=== PATIENT | male | born 1960 | race Caucasian/White ===

== ENCOUNTER 2018-07-15 16:50 | Emergency (ER) | payer OTHER ==
[~2018-07-15] VITALS: Ht 167.6 cm; Wt 93.0 kg
[2018-07-15 16:55] VITALS: BP 151/100
--- NOTE | 2018-07-15 17:00 | NUR ---
dr romo at bedside
--- NOTE | 2018-07-15 17:05 | NUR ---
58 Y M bib self. per patient he fell off the top of a ladder and hit his head on a rail coming down and landed on his r arm. pt states he was 6 ft high. laceration across pts r forehead. 1 cm long. pts right eye swollen, red, and pt cant open his right eye. c/o intense pain 10/10 in right arm. -rom, +radial pulse, -swelling. vss at this time. aa0x4. gcs 15. bed is down, locked, bed rail x 1, ermd notified. pmh-none
--- NOTE | 2018-07-15 17:08 | NUR ---
pt states his boss drove him to the er
--- NOTE | 2018-07-15 17:27 | NUR ---
Patient taken to CT scan/XRAY via gurney by howard.
--- NOTE | 2018-07-15 17:32 | NUR ---
pt taken to ct
--- NOTE | 2018-07-15 17:57 | NUR ---
pt returned from ct
--- NOTE | 2018-07-15 18:05 | NUR ---
Dr. Browne re-evaluating patient at bedside.
[2018-07-15] MEDS ORDERED: fentaNYL 0.05 MG/ML VIAL IVP ONE (18:25)
[2018-07-15] MEDS ORDERED: ETOMIDATE 20 MG/10 ML VIAL IVP ONE (18:25)
--- NOTE | 2018-07-15 18:33 | NUR ---
Dr. Browne, RT and RN at bedside for reduction of right shoulder dislocation with moderate sedation.
--- NOTE | 2018-07-15 18:35 | NUR ---
PT PLACED ON 2 L NC
--- NOTE | 2018-07-15 18:40 | NUR ---
Placed patient onto nasal cannula at 2 l/m along with CO2 detector. at bedside. Patient did not desat and continued spontaneously breathing. Patient given Propofol due to adverse reaction to Etomidate, in which patient was clenching and tightening extremities. Bagged patient with Ambu bag at 100% Fio2 once Propofol was given. Spo2 remained between 98-100%.
--- NOTE | 2018-07-15 18:42 | NUR ---
CONSCIOUS SEDATION STARTED, PHYSICIAN, RT, EMT, RN AT BEDSIDE. WILL CONTINUE TO MONITOR PT
--- NOTE | 2018-07-15 18:48 | NUR ---
PER DR ORDER, PROPOFOL 100 MG GIVEN IVP
--- NOTE | 2018-07-15 18:49 | NUR ---
pt placed on ampe bug 100 percent o2
--- NOTE | 2018-07-15 18:49 | NUR ---
Ben hernandez in [facility] - 07/15/18 at 2039 by [email or web address] PT PLACED ON 100% NONREBREATHER
--- NOTE | 2018-07-15 18:51 | NUR ---
PT PLACED IN SLING
[2018-07-15] MEDS ORDERED: PROPOFOL 200 MG/20 ML VIAL IV ONE ×2 (18:55→18:56)
--- NOTE | 2018-07-15 18:56 | NUR ---
KEHINDE EMT AT BEDSIDE GIVING EYE CARE
[2018-07-15] MEDS ORDERED: LIDOCAINE 1% 500 MG/50 ML VIAL INJ SCH (19:20)
[2018-07-15 19:24] LABS: BASOPHILS % (AUTO) 0.3 % (0.0-2.0); EOSINOPHILS % (AUTO) 0.3 % (0.0-4.0); HEMATOCRIT 43.2 % (36-52); HEMOGLOBIN 14.6 g/dL (12.0-18.0); LYMPHOCYTES # (AUTO) 1.5 K/uL (2.0-11.5); LYMPHOCYTES % (AUTO) 10.3 % (20.5-51.1); MEAN CORPUSCULAR HEMOGLOBIN 30 pg (27-31); MEAN CORPUSCULAR HGB CONC 34 g/dL (33-37); MEAN CORPUSCULAR VOLUME 89.6 fL (80-94); MONOCYTES # (AUTO) 1.1 K/uL (0.8-1.0); MONOCYTES % (AUTO) 7.7 % (1.7-9.3); NEUTROPHILS # (AUTO) 11.6 K/uL (1.8-7.7); NEUTROPHILS % (AUTO) 81.4 % (42.2-75.2); PLATELET COUNT (AUTO) 225 K/uL (140-450); RED BLOOD CELL COUNT(AUTO) 4.82 MIL/uL (4.20-6.10); RED CELL DISTRIBUTION WIDTH 14.2 % (11.6-13.7); WHITE BLOOD COUNT (AUTO) 14.2 K/uL (4.8-10.8)
--- NOTE | 2018-07-15 19:25 | NUR ---
PT COMING OUT OF SEDATED STATE. EYES OPENED. MOANED. ABD TO VERBALLIZED, ALERT TO NAME AND PLACE. EYES CLOSED AGAIN. VSS. CONTINUE TO MONITOR.
--- NOTE | 2018-07-15 19:30 | NUR ---
DR BLANTON AT BEDSIDE. PT CONVERSING WITH DR. POWELL. CONTINUE TO MONITOR.
--- NOTE | 2018-07-15 19:30 | NUR ---
PT ALERT TO NAME, PLACE, TIME, AND EVENT.
[2018-07-15] MEDS ORDERED: LIDOCAINE MPF 1% 5mL VIAL ONE (19:32)
[2018-07-15 19:35] LABS: ANION GAP 15.2 (8-16); CARBON DIOXIDE 24.4 mmol/L (21-32); CHLORIDE 102 mmol/L (98-107); CREATININE 0.6 mg/dL (0.7-1.3); GFR ARICAN-AMERICAN 177 mL/min (>90); GLUCOSE 120 mg/dL (74-106); POTASSIUM 3.6 mmol/L (3.5-5.1); SODIUM SERUM 138 mmol/L (136-145); UREA NITROGEN, BLOOD 20 mg/dL (7-18)
[2018-07-15 19:41] LABS: ALBUMIN 3.7 g/dL (3.4-5.0); ASPARTATE AMINOTRANSFERASE 35 U/L (15-37); SALICYLATE 5.4 mg/dL (2.8-20.0); TOTAL BILIRUBIN 0.5 mg/dL (0.0-1.0)
[2018-07-15 19:42] LABS: ACETAMINOPHEN < 0.5 ug/ml (10-30)
--- NOTE | 2018-07-15 20:07 | NUR ---
[facility] TO [facility]. GAVE REPORT. PT VSS. CONTINUE TO MONITOR.
--- NOTE | 2018-07-15 20:08 | NUR ---
pt unable to give urine at this time
--- NOTE | 2018-07-15 20:32 | NUR ---
[facility] AT BEDSIDE
--- NOTE | 2018-07-15 20:49 | NUR ---
transport team waiting for cd copy
--- NOTE | 2018-07-15 20:49 | NUR ---
report given to transport team, robert oyster opener
--- NOTE | 2018-07-15 20:57 | NUR ---
Patient to be transferred to [facility]. Is being transferred due to HIGHER LEVEL OF CARE. Receiving facility has accepting physician and available space. ER physician has signed transfer form. Patient or responsible green party has agreed to transfer and signed form. Patient belongings inventoried and will be sent with patient. Copy of nursing notes, lab reports, EKG, Physicians Orders and X-rays to be sent with patient. Report called to LEILA LENNON at receiving facility. [facility] ambulance service has been called for transfer. [facility] AT BEDSIDE.
[2018-07-15 20:59] VITALS: BP 175/92
== END 2018-07-15 20:57 | disposition short-term general hospital (02) ==
LOC: MED 16:50
DX: S43.014A Anterior dislocation of right humerus, initial encounter (principal); S02.92XA Unspecified fracture of facial bones, initial encounter for closed fracture; S01.81XA Laceration without foreign body of other part of head, initial encounter; W11.XXXA Fall on and from ladder, initial encounter; Y93.89 Activity, other specified; Y92.69 Other specified industrial and construction area as the place of occurrence of the external cause; Y99.0 Civilian activity done for income or pay
CPT/HCPCS: 12011; 23650; 36415; 70450; 70486; 71250; 72125; 73020; 73060; 74176; 80053; 85025; 93005; 96374; 99152; 99285; G0480; G0482; G0500; J2001; J2704; J3010; J3490; Q0092

== ENCOUNTER 2021-06-06 18:25 | Emergency (ER) | payer SELFPAY ==
[~2021-06-06] VITALS: Ht 167.6 cm; Wt 105.7 kg
[2021-06-06 18:32] VITALS: BP 161/79
--- NOTE | 2021-06-06 18:40 | NUR ---
PT AMBULATED TO ROOM 2 AT THIS TIME
--- NOTE | 2021-06-06 18:45 | NUR ---
61 Y/O MALE AMBULATED TO BED 2 WHILE HOLDING ON TO DAUGHTERS ARM FOR VISUAL GUIDANCE, C/O DISORIENTATION X 1 WEEK WITH VISION CHANGES. STATES HE FEELS IF HE IS AT 30 % VISION. REPORTS AN EPISODE WHILE DRIVING A MOTOR VEHICLE THAT HE COULD NOT REMEMBER WHERE HE WAS AND HOW HE GOT TO WHERE HE WAS AT THAT TIME. PMHX: DENIES ALLERGIES: DENIES HOME MEDS: DENIES
--- NOTE | 2021-06-06 19:15 | NUR ---
Pt report given to SAJI RICHARDSON. Transfer of care at this time.
[2021-06-06] MEDS ORDERED: KETOROLAC 60 MG/2 ML VIAL IM ONE (19:20)
--- NOTE | 2021-06-06 19:20 | NUR ---
ASSUMED PATIENT CARE, HERE FOR ALOC, BLURRING OF VISION. AWAITING FOR CT READ, ON ASSESMENT PT IS AOX4, C/O HEADACHE. VS STABLE.
[2021-06-06] MEDS ORDERED: IBUP-2213 PO (19:43)
--- NOTE | 2021-06-06 20:08 | NUR ---
PATIENT CLEARED WITH DR. RAMOS, INSTRUCTIONS REINFORCED TO PATIENT AND FAMILY MEMBER, VERBALIZED UNDERSTANDING. VS STABLE ON DC, EXITED ED WITH STEADY GAIT.
[2021-06-06 20:09] VITALS: BP 122/71
== END 2021-06-06 20:00 | disposition home or self-care (01) ==
LOC: MED 18:25
DX: R51.9 Headache, unspecified (principal); H53.8 Other visual disturbances; Z98.890 Other specified postprocedural states
CPT/HCPCS: 70450; 96372; 99284; J1885